=== PATIENT | female | born 1955 | race Caucasian/White ===

== ENCOUNTER 2024-07-17 11:47 | Day surgery (SDC) | payer MEDICARE, MEDICAID ==
[~2024-07-17] VITALS: Ht 154.9 cm; Wt 74.8 kg
[~2024-07-17 11:47] MED LIST: ALBU2.5V10 INH; ANOR1AER INH; ATOR1TAB19 PO; BARI1CAP PO; BIOT1CAP2 PO; LEVE10003 PO; LR 1,000 ML IV SCH; MIDAZOLAM INJ 2MG/2ML VIAL As Ordered ONE; VENTAER INH; fentaNYL 100 MCG/2 ML INJECTION As Ordered ONE
[2024-07-17] MEDS: TETRACAINE 0.5% OPHTH SOLN 4ML OD SCH (13:09)
[2024-07-17] MEDS: PHENYLEPHRINE 2.5% OPHTH SOL 2ML OD SCH (13:09)
[2024-07-17] MEDS: FLURBIPROFEN 0.03% OPHTH SOLN 2.5 ML OD SCH (13:09)
[2024-07-17] MEDS: ATROPINE SULFATE 1% OPHTH SOLN 2ML BTL OD SCH (13:09)
[2024-07-17] MEDS: LIDOCAINE 1% SDV 5ML VIAL As Ordered ONE (14:03)
[2024-07-17] MEDS: CEFUROXIME 1MG/0.1ML INTRACAMERAL INJ As Ordered ONE (14:04)
[2024-07-17 14:33] VITALS: BP 170/79; TEMP 97.1; O2SAT 100
== END 2024-07-17 14:46 | disposition home or self-care (01) ==
LOC: M SDC 11:47
PROVIDERS: ATTEND Ophthalmology
DX: H25.11 Age-related nuclear cataract, right eye (principal); E78.5 Hyperlipidemia, unspecified; G43.909 Migraine, unspecified, not intractable, without status migrainosus; J44.9 Chronic obstructive pulmonary disease, unspecified; Z88.2 Allergy status to sulfonamides; Z88.8 Allergy status to other drugs, medicaments and biological substances; Z79.51 Long term (current) use of inhaled steroids; Z79.899 Other long term (current) drug therapy; Z79.84 Long term (current) use of oral hypoglycemic drugs
CPT/HCPCS: 66984; J0697; J2250; J3010; V2632